=== PATIENT | male | born 1945 ===

== ENCOUNTER 2018-03-11 13:46 | Emergency (ER) | payer MEDICARE ==
[2018-03-11 13:46] VITALS: BMI 27.4
--- NOTE | 2018-03-11 14:41 | C.PDOC ---
History Of Present Illness 72 y/o male presents to the ED complaining of a groin rash for the last 3 weeks. Seen by his PMD 2 days ago and was prescribed ketoconazole 2% ointment, which he has applied 3x in the last 3 days without significant improvement. Patient also states that 5 days ago he became transiently dizzy while driving the car and wants this evaluated. No work-up for this was done with the PMD 2 days ago, as patient has been asymptomatic since. Otherwise patient currently denies any chest pain, SOB, palpitations, nausea, vomiting, dizziness, lightheadedness, or other complaints. Time Seen by Provider: 03/11/18 14:12 Chief Complaint (Nursing): Chest Pain History Per: Patient History/Exam Limitations: no limitations Onset/Duration Of Symptoms: Days Current Symptoms Are (Timing): Still Present Past Medical History Reviewed: Historical Data, Nursing Documentation, Vital Signs Vital Signs: Last Vital Signs Temp 98.7 F 03/11/18 13:53 Pulse 90 03/11/18 13:53 Resp 20 03/11/18 13:53 BP 125/70 03/11/18 13:53 Pulse Ox 98 03/11/18 14:58 - Medical History PMH: Arthritis, Diabetes, Gastritis, Gall Bladder Disease, HTN, Hypercholesterolemia, Kidney Stones, Chronic Kidney Disease, Rheumatoid Arthritis Denies: Atrial Fibrillation Surgical History: Cholecystectomy, Coronary Stent (2 weeks ago), Endoscopy - [facility] Procedures INFLUENZA VACCINATION (07/01/14) LAPAROSCOPIC CHOLECYSTECTOMY (04/17/15) LAPAROSCOPIC ROBOTIC ASSISTED PROCEDURE (04/17/15) VACCINATION NEC (07/01/14) Family History: States: Unknown Family Hx - Social History Hx Tobacco Use: No Hx Alcohol Use: No Hx Substance Use: No - Immunization History Hx Tetanus Toxoid Vaccination: No Hx Influenza Vaccination: Yes Hx Pneumococcal Vaccination: Yes Review Of Systems Eyes: Negative for: Vision Change Cardiovascular: Negative for: Chest Pain, Palpitations, Light Headedness Respiratory: Negative for: Shortness of Breath Gastrointestinal: Negative for: Nausea, Vomiting Skin: Positive for: Rash Neurological: Negative for: Dizziness Physical Exam - Physical Exam Appears: Non-toxic, No Acute Distress Skin: Warm, Dry, Rash (Tinea cruris with sharply demarcated leading edge and white flakiness to the groin and bilateral buttock area, no ointment appears to be applied) Head: Atraumatic, Normacephalic Eye(s): bilateral: Normal Inspection, PERRL, EOMI Nose: Normal Oral Mucosa: Moist Neck: Normal ROM, No Midline Cervical Tenderness, Supple, Other (bilateral trapezius tenderness) Chest: Symmetrical, No Deformity, No Tenderness Cardiovascular: Rhythm Regular, No Murmur Respiratory: Normal Breath Sounds, No Rales, No Rhonchi, No Wheezing Gastrointestinal/Abdominal: Soft, No Tenderness, No Distention Back: No Vertebral Tenderness, No Decreased ROM Extremity: Normal ROM, No Calf Tenderness, No Swelling, Other (Left leg scars due to vein stripping) Pulses: Left Dorsalis Pedis: Normal, Right Dorsalis Pedis: Normal Neurological/Psych: Oriented x3, Normal Speech, Normal Cranial Nerves, Normal Motor, Normal Sensation, Other (No focal deficits) Gait: Steady ED Course And Treatment - Laboratory Results Result Diagrams: 03/11/18 14:45 07 14:45 Lab Interpretation: Abnormal (baseline, mild anemia (normocytic) CRI, glu <250) ECG: Interpreted By Me, Viewed By Me ECG Rhythm: Sinus Rhythm ECG Interpretation: Normal Rate From EC O2 Sat by Pulse Oximetry: 98 (RA) Pulse Ox Interpretation: Normal - Radiology CXR: Interpreted by Me CXR Interpretation: Yes: No Acute Disease - Other Rad head CT X-Ray: Interpreted by Me, Read By Radiologist (no acute findings.) Progress Note: ketoconazole to groin Reevaluation Time: 15:45 Reassessment Condition: Improved Medical Decision Making Medical Decision Making: Time: 1433 Initial Plan: --EKG --CXR --Labs --Head CT --Motrin 600 mg PO brief dizziness while driving 5 days ago ? anxiety/panic completely normal neuro exam chronic benign findings on head CT outpatient f/u and MRI prn impressive tinea cruris poor compliance with ketoconazole ointment/cream extensively instructed refilled. Disposition Doctor Will See Patient In The: Office Counseled Patient/Family Regarding: Studies Performed, Diagnosis - Disposition Disposition: HOME/ ROUTINE Disposition Time: 15:46 Condition: GOOD Forms: [facility] (Albanian) - Clinical Impression Clinical Impression: Janet rash of groin - Scribe Statement The provider has reviewed the documentation as recorded by the Scribe (Deneen Alan) Provider Attestation: All medical record entries made by the Scribe were at my direction and personally dictated by me. I have reviewed the chart and agree that the record accurately reflects my personal performance of the history, physical exam, medical decision making, and the department course for this patient. I have also personally directed, reviewed, and agree with the discharge instructions and disposition.
[2018-03-11 14:49] LABS: BASO # 0.1 K/uL (0.0-0.2); BASO % 1.2 % (0.0-2.0); EOS # 0.4 K/uL (0.0-0.7); EOS % 5.1 % (0.0-4.0); HEMOGLOBIN 11.8 g/dL (12.0-18.0); LYMPH # 1.3 K/uL (1.0-4.3); LYMPH % 17.1 % (20.0-40.0); MEAN CELL VOLUME 81.8 fL (80.0-94.0); MEAN CORPUSCULAR HEMOGLOBIN 27.6 pg (27.0-31.0); MEAN CORPUSCULAR HGB CONC 33.8 g/dL (33.0-37.0); MEAN PLATELET VOLUME 7.1 fL (7.2-11.7); MONO # 0.5 K/uL (0.0-0.8); MONO % 6.5 % (0.0-10.0); NEUT # 5.3 K/uL (1.8-7.0); NEUT % 70.1 % (50.0-75.0); RBC 4.27 Mil/uL (4.40-5.90); RED CELL DISTRIBUTION WIDTH 15.1 % (11.5-14.5); WHITE BLOOD COUNT 7.5 K/uL (4.8-10.8)
[2018-03-11 14:51] LABS: URINE BILIRUBIN NEGATIVE (NEGATIVE); URINE BLOOD NEGATIVE (NEGATIVE); URINE CLARITY Clear (Clear); URINE COLOR Straw (YELLOW); URINE GLUCOSE (UA) 1+ mg/dL (Normal); URINE LEUKOCYTE ESTERASE NEG Leu/uL (Negative); URINE PROTEIN NEGATIVE (NEGATIVE); URINE UROBILINOGEN NORMAL mg/dL (0.2-1.0)
[2018-03-11 15:01] LABS: ALB/GLOB RATIO 1.3 (1.0-2.1); ALT/SGPT 27 U/L (21-72); AST/SGOT 18 U/L (17-59); BLOOD UREA NITROGEN 41 mg/dL (9-20); CALCIUM 9.5 mg/dl (8.6-10.4); GFR AFRICAN-AMERICAN 48; GFR NON-AFRICAN AMERICAN 40
[2018-03-11 15:07] LABS: BARBITURATES, UR NEGATIVE (NEGATIVE); BENZODIAZEPINES, UR NEGATIVE (NEGATIVE); OPIATES, UR NEGATIVE (NEGATIVE); PHENCYCLIDINE, UR NEGATIVE (NEGATIVE)
[2018-03-11 15:13] LABS: B-TYPE NATRIURETIC PEPTIDE 115 pg/mL (0-900)
--- NOTE | 2018-03-11 15:26 | RAD ---
Procedure CHEST RADIOGRAPH, 1 VIEW History SOB Comparison Comparison made with prior study 10/07/2016 Findings Lungs Mild low lung volumes with mild bibasilar atelectasis left greater than right. Pleura No pneumothorax or pleural fluid seen. Cardiovascular Borderline cardiomegaly. Sternotomy wires and CABG clips again noted. Osseous Structures No significant abnormalities. Visualized Upper Abdomen Normal. Other Findings None. Impression Mild low lung volumes with mild bibasilar atelectasis left greater than right.
--- NOTE | 2018-03-11 15:36 | CT ---
PROCEDURE: CT HEAD WITHOUT CONTRAST. HISTORY: dizzy 5 days ago COMPARISON: None available. TECHNIQUE: Axial computed tomography images were obtained through the head/brain without intravenous contrast. Radiation dose: Total exam DLP = 1117.02 mGy-cm. This CT exam was performed using one or more of the following dose reduction techniques: Automated exposure control, adjustment of the mA and/or kV according to patient size, and/or use of iterative reconstruction technique. FINDINGS: HEMORRHAGE: No acute parenchymal, subarachnoid or extra-axial hemorrhage. BRAIN: No evidence of large acute infarct. Suspect minimal chronic periventricular white matter ischemic changes. . There is a small somewhat wedge-shaped area of low attenuation left posterior parietal cortex and subcortical region. This could represent a small area of chronic nonspecific gliosis. Followup nonemergent MRI could be performed for further evaluation and confirmation. No evidence of parenchymal nor extra-axial mass or collection. Mild moderate central volume loss. Vascular calcifications both carotid siphons and vertebral arteries. VENTRICLES: Unremarkable. No hydrocephalus. CALVARIUM: Unremarkable. PARANASAL SINUSES: Mild mucoperiosteal inflammatory changes within the ethmoid air complex extending superiorly into the frontal sinus. Minimal mucosal thickening right chamber sphenoid sinus. . MASTOID AIR CELLS: Unremarkable as visualized. No inflammatory changes. OTHER FINDINGS: Orbits and contents unremarkable. IMPRESSION: No acute intracranial hemorrhage. Suspect minimal chronic periventricular white matter ischemic changes . There is a small somewhat wedge-shaped area of low attenuation left posterior parietal cortex and subcortical region. This could represent a small area of nonspecific chronic gliosis. Followup nonemergent MRI could be performed for further evaluation and confirmation. No evidence of parenchymal nor extra-axial mass or collection. Mild moderate central volume loss. Moderate central volume loss.
[2018-03-11 15:51] VITALS: BP 115/61; PULSE 80; RESP 18; TEMP 99; O2SAT 96
--- NOTE | 2018-03-12 20:00 | CARD ---
APPROVED REPORT EKG Measurement Heart [id number] <Conclusion> Normal sinus rhythm Inferior infarct, age undetermined Cannot rule out Anterior infarct, age undetermined T wave abnormality, consider lateral ischemia Abnormal ECG
== END 2018-03-11 15:56 | disposition home or self-care (01) ==
LOC: C.ER 13:46
DX: B37.2 Candidiasis of skin and nail (principal)
CPT/HCPCS: 70450; 71045; 80053; 81001; 83880; 84484; 85025; 93005; 99285; G0480

== ENCOUNTER 2018-08-28 06:26 | Day surgery (SDC) | payer MEDICARE ==
[2018-08-28] MEDS ORDERED: Propofol 10 mg/ml Inj (20 ML) ONE ×2 (08:24→08:45)
--- NOTE | 2018-08-28 08:29 | CP.SDSHP ---
Same Day Surgery H & P - History Proposed Procedure: colonoscopy Pre-Op Diagnosis: h/o colon polyps. lower abdominal pain - Previous Medical/Surgical History Cardiac: Hypertension, ASHD/CAD, Previous IA, Other (hyperlipidemia, gerd, gastritis, ) Misc: Other (pancreatitis, bladder problems) Previous Surgical History: CABG (1997). PTCA with stents 2016. Lap Alana - Allergies Allergies: Allergies No Known Allergies Allergy (Verified 08/24/18 12:20) - Physical Exam Vital Signs: Vital Signs 08/28/18 06:59 Temperature 97.5 F L Pulse Rate 70 Respiratory 19 Rate Blood Pressure 128/75 O2 Sat by Pulse 99 Oximetry Mental Status: Alert & Oriented x3 Neuro: WNL Heart: Other (thoracotomy scar) Lungs: WNL GI: WNL - Impression Impression: h/o colon polyps. lower abdominal pain Pt. Evaluated Today:Candidate for Anesthesia & Procedure: Yes - Date & Time Date: 08/28/18 Time: 08:30 Short Stay Discharge - Short Stay Discharge Admitting Diagnosis/Reason for Visit: RIGHT LOWER QUADRANT PAIN Disposition: HOME/ ROUTINE Referrals: Viktor Kenyon MD [Primary Care Provider] -
[2018-08-28] MEDS ORDERED: Phenylephrine 10 mg/ml Inj ONE (08:45)
[2018-08-28 11:07] VITALS: TEMP 97
[2018-08-28 11:12] VITALS: BP 134/70; PULSE 65; RESP 20; O2SAT 100
== END 2018-08-28 10:30 | disposition home or self-care (01) ==
LOC: C.ENDO 06:26
PROVIDERS: ATTEND Internal Medicine Gastroenterology
DX: D12.4 Benign neoplasm of descending colon (principal); D12.5 Benign neoplasm of sigmoid colon; K57.90 Diverticulosis of intestine, part unspecified, without perforation or abscess without bleeding; R10.31 Right lower quadrant pain; R19.4 Change in bowel habit; K59.00 Constipation, unspecified; Z86.010 Personal history of colon polyps
CPT/HCPCS: 45385; 82948; 88305; J2370; J2704

== ENCOUNTER 2018-10-12 07:25 | Outpatient (CLI) | payer MEDICARE | END 2018-10-12 07:26 | disposition home or self-care (01) | LOC: C.LAB 07:25 | DX: N18.3 Chronic kidney disease, stage 3 (moderate) (principal) ==

== ENCOUNTER 2018-10-24 07:47 | Outpatient (CLI) | payer MEDICARE | END 2018-10-24 07:48 | disposition home or self-care (01) | LOC: C.LAB 07:47 | DX: E11.65 Type 2 diabetes mellitus with hyperglycemia (principal); E78.2 Mixed hyperlipidemia; E03.9 Hypothyroidism, unspecified ==

== ENCOUNTER 2018-11-19 13:40 | Outpatient (CLI) | payer MEDICARE | END 2018-11-19 13:41 | disposition home or self-care (01) | LOC: C.CTH 13:41 | DX: K86.9 Disease of pancreas, unspecified (principal) ==

== ENCOUNTER 2018-12-13 12:24 | Outpatient (CLI) | payer MEDICARE | END 2018-12-13 12:25 | disposition home or self-care (01) | LOC: C.MRIC 12:24 | DX: D49.0 Neoplasm of unspecified behavior of digestive system (principal) ==

== ENCOUNTER 2018-12-18 06:51 | Day surgery (SDC) | payer MEDICARE ==
--- NOTE | 2018-12-18 07:28 | CP.SDSHP ---
<Aida Dahl - Last Filed: 12/18/18 07:28> Same Day Surgery H & P - History Proposed Procedure: EGD Pre-Op Diagnosis: Abd pain. recurrent heart burn - Previous Medical/Surgical History Cardiac: Hypertension, ASHD/CAD Endocrine/Metabolic: Thyroid Disease, Diabetes Pain: 0. No Pain Comments: HL. GERD Previous Surgical History: cardiac stents, CABG - Allergies Allergies: Allergies No Known Allergies Allergy (Verified 08/24/18 12:20) - Current Medications Current Medications: ASA Atorvastatin Plavix (last dose 12/18/2018) Fenofibrate Fish Oil gabapentin amaryl glargine NPH levothroxyine Losartan metformin metoprolol pantoprazole - Physical Exam General Appearance: no acute distress Vital Signs: Vital Signs 12/18/18 07:14 Temperature 97 F L Pulse Rate 72 Respiratory 19 Rate Blood Pressure 177/90 H O2 Sat by Pulse 99 Oximetry Mental Status: Alert & Oriented x3 Neuro: WNL Heart: WNL Lungs: WNL GI: WNL - {Optional Preform as Required} Abdomen: WNL - Impression Impression: Abd pain. recurrent heartburn Pt. Evaluated Today:Candidate for Anesthesia & Procedure: Yes - Date & Time Date: 12/18/18 Time: 07:00 Short Stay Discharge - Short Stay Discharge Admitting Diagnosis/Reason for Visit: HEARTBURN, EPIGASTRIC PAIN Disposition: HOME/ ROUTINE Referrals: Viktor Kenyon MD [Primary Care Provider] - <Hi Amaral - Last Filed: 12/18/18 08:31> Same Day Surgery H & P - Allergies Allergies: Allergies No Known Allergies Allergy (Verified 08/24/18 12:20) - Physical Exam Vital Signs: Vital Signs 12/18/18 07:14 Temperature 97 F L Pulse Rate 72 Respiratory 19 Rate Blood Pressure 177/90 H O2 Sat by Pulse 99 Oximetry Attending/Attestation - Attestation I have personally seen and examined this patient.: Yes I have fully participated in the care of the patient.: Yes I have reviewed all pertinent clinical information: Yes Notes (Text): 12/18/18 08:31 Agree with EGD for assessment of heartburn and epigastric pain refractory to therapy on ASA/Plavix.
[2018-12-18] MEDS ORDERED: Pantoprazole 40 mg EC Tab PO STA (08:32)
[2018-12-18] MEDS ORDERED: Lactated Ringer's 500 ML IV ONE (08:34)
[2018-12-18] MEDS ORDERED: Propofol 10 mg/ml Inj (20 ML) ONE (08:38)
[2018-12-18] MEDS ORDERED: Lidocaine Hydrochloride 5 ML INJ ONE (08:38)
[2018-12-18 09:27] VITALS: O2SAT 98
[2018-12-18 10:16] VITALS: BP 127/85; PULSE 70; RESP 19; TEMP 97.9
== END 2018-12-18 10:02 | disposition home or self-care (01) ==
LOC: C.ENDO 06:51
PROVIDERS: ATTEND Internal Medicine Gastroenterology
DX: K21.0 Gastro-esophageal reflux disease with esophagitis (principal); K29.70 Gastritis, unspecified, without bleeding; I25.10 Atherosclerotic heart disease of native coronary artery without angina pectoris; Z95.1 Presence of aortocoronary bypass graft; Z95.5 Presence of coronary angioplasty implant and graft; I25.2 Old myocardial infarction; E11.9 Type 2 diabetes mellitus without complications; I10 Essential (primary) hypertension; E78.5 Hyperlipidemia, unspecified; Z79.899 Other long term (current) drug therapy; Z79.02 Long term (current) use of antithrombotics/antiplatelets; Z79.82 Long term (current) use of aspirin; Z79.84 Long term (current) use of oral hypoglycemic drugs
CPT/HCPCS: 43239; 82948; 88305; 88312; 88342; J2704; J7120

== ENCOUNTER 2018-12-31 07:44 | Outpatient (CLI) | payer MEDICARE | END 2018-12-31 07:45 | disposition home or self-care (01) | LOC: C.LAB 07:44 | DX: N18.3 Chronic kidney disease, stage 3 (moderate) (principal) ==

== ENCOUNTER 2019-01-25 07:17 | Outpatient (CLI) | payer MEDICARE | END 2019-01-25 07:18 | disposition home or self-care (01) | LOC: C.LAB 07:17 | DX: E78.2 Mixed hyperlipidemia (principal) ==